=== PATIENT | female | born 1955 | race Caucasian/White ===

== ENCOUNTER 2019-06-12 08:54 | Day surgery (SDC) | payer BC ==
[~2019-06-12 08:54] MED LIST: Lactated Ringers 1,000 ML IV SCH; Sodium Chloride 0.9% 10 ML SDV IV PRN; Sodium Chloride 0.9% 10 ML Syringe FLUSH PRN; Sodium Chloride 0.9% 2.5 ML Syringe FLUSH PRN
--- NOTE | 2019-06-12 09:47 | PCM.PREANE ---
Preanesthetic Assessment - Anesthesia/Transfusion/Family Hx Anesthesia History: Prior Anesthesia Without Reaction Family History of Anesthesia Reaction: No Transfusion History: No Prior Transfusion(s) Intubation History: Unknown - Review of Systems General: No Symptoms Pulmonary: No Symptoms Cardiovascular: No Symptoms Gastrointestinal: No Symptoms Neurological: Headache Other: Reports: None - Physical Assessment NPO Status Date: 06/11/19 O2 Sat by Pulse Oximetry: 98 Respiratory Rate: 15 Vital Signs: Last Vital Signs Temp 97.5 F 06/12/19 09:23 Pulse 89 06/12/19 09:23 Resp 15 06/12/19 09:23 BP 110/70 06/12/19 09:23 Pulse Ox 98 06/12/19 09:23 Height: 5 ft 9 in Weight: 78.925 kg ASA Class: 2 Mental Status: Alert & Oriented x3 Airway Class: Mallampati = 2 Dentition: Reports: Normal Dentition ROM/Head Extension: Full Lungs: Clear to Auscultation, Normal Respiratory Effort Cardiovascular: Regular Rate, Regular Rhythm - Allergies Allergies/Adverse Reactions: Allergies Allergy/AdvReac Type Severity Reaction Status Date / Time No Known Allergies Allergy Verified 06/06/19 13:48 - Blood Blood Available: No - Anesthesia Plan Pre-Op Medication Ordered: None - Acknowledgements Anesthesia Type Planned: General Anesthesia Pt an Appropriate Candidate for the Planned Anesthesia: Yes Alternatives and Risks of Anesthesia Discussed w Pt/Guardian: Yes Pt/Guardian Understands and Agrees with Anesthesia Plan: Yes Additional Comments: anes prob list: smoker PLAN: tiva PreAnesthesia Questionnaire HEENT History: Reports: Other (See Below) Other HEENT History: uses reading glasses Gastrointestinal History: Reports: Colon Polyp Musculoskeletal History: Reports: Fracture Other Musculoskeletal History: hx of fx clavicle as a child Endocrine/Metabolic History: Reports: Hypothyroidism - Past Surgical History Head Surgeries/Procedures: Reports: None HEENT Surgical History: Reports: Tonsillectomy GI Surgical History: Reports: Colonoscopy Musculoskeletal Surgical History: Reports: Knee Replacement Other Musculoskeletal Surgeries/Procedures:: left TKA - SUBSTANCE USE Smoking Status *Q: Current Every Day Smoker Tobacco Use Within Last Twelve Months: Cigarettes Recreational Drug Use History: No - HOME MEDS Home Medications: Home Meds Calcium Phosphate Trib/Vit D3 [Citracal + D3 Gummies] 1 tab PO DAILY 06/06/19 [ History] Levothyroxine [Synthroid] 100 mcg PO DAILY 06/06/19 [History] Multivits-Min/Iron/FA/Lutein [Centrum Silver Women Tablet] 1 tab PO DAILY [History] - CURRENT (IN HOUSE) MEDS Current Meds: Current Medications Lactated Ringer's (Ringers, Lactated) 1,000 mls @ 125 mls/hr IV ASDIRECTED JEANINE Last Admin: 06/12/19 09:31 Dose: 125 mls/hr Sodium Chloride (Saline Flush) 10 ml FLUSH ASDIRECTED PRN PRN Reason: Keep Vein Open Sodium Chloride (Saline Flush) 2.5 ml FLUSH ASDIRECTED PRN PRN Reason: Keep Vein Open Sodium Chloride (Saline Flush) 10 ml FLUSH ASDIRECTED PRN PRN Reason: Keep Vein Open Sodium Chloride (Saline Flush) 2.5 ml FLUSH ASDIRECTED PRN PRN Reason: Keep Vein Open Sodium Chloride (Normal Saline) 10 ml IV ASDIRECTED PRN PRN Reason: IV Use
[2019-06-12] MEDS ORDERED: Lidocaine 2% 5 ML SDV ONE (11:04)
[2019-06-12] MEDS ORDERED: Propofol 200 MG/20 ML SDV ONE (11:05)
[2019-06-12] MEDS ORDERED: fentaNYL 100 MCG/2 ML SDV ONE (11:05)
--- NOTE | 2019-06-12 12:26 | PCM.OPNOTE ---
- General Post-Op/Procedure Note Date of Surgery/Procedure: 06/12/19 Operative Procedure(s): Colonoscopy Findings: Hyperplastic sigmoid colon polyps Pre Op Diagnosis: History of colon polyps Post-Op Diagnosis: Hyperplastic sigmoid colon polyps Anesthesia Technique: ERNIE Primary Surgeon: Tamra Sawyer Condition: Good
--- NOTE | 2019-06-12 12:38 | PCM48HPAN ---
Post Anesthesia Note - EVALUATION WITHIN 48HRS OF ANESTHETIC Vital Signs in Normal Range: Yes Patient Participated in Evaluation: Yes Respiratory Function Stable: Yes Airway Patent: Yes Cardiovascular Function Stable: Yes Hydration Status Stable: Yes Pain Control Satisfactory: Yes Nausea and Vomiting Control Satisfactory: Yes Mental Status Recovered: Yes Resp Rate: 18
--- NOTE | 2019-06-13 16:11 | OR ---
SURGEON: MATTHEW AVILES MD DATE OF PROCEDURE: 06/12/2019 PREOPERATIVE DIAGNOSIS: History of colon polyps. POSTOPERATIVE DIAGNOSIS: Multiple hyperplastic polyps of the sigmoid colon. PROCEDURE PERFORMED: Diagnostic colonoscopy. ANESTHESIA: MAC. INSTRUMENT USED: Olympus colonoscope. EXTENT OF EXAM: To the cecum. PREPARATION: Good. LIMITATIONS: None. INDICATION FOR EXAMINATION: The patient is a 64-year-old female with a strong family history of colon cancer. I performed a screening colonoscopy six months ago and saw multiple polyps. The polyps that I removed for more proximal colon were tubular adenomas, but the multiple polyps I removed from her sigmoid colon were hyperplastic. Given that I did not remove all of these, the decision was made to proceed with a 6 month followup to ensure that none of the polyps appeared to be older adenomas. The patient and I discussed the procedure, expected perioperative course, and risks including bleeding, infection, damage to surrounding structures including perforation. The patient verbalized understanding and wished to proceed. PROCEDURE IN DETAIL: The patient was brought to into the endoscopy suite and placed in the left lateral decubitus position. A time-out was completed verifying the patient's name, age, date of , allergies, and procedure to be performed. Monitored anesthesia care was induced and continuous oxygen was provided via nasal cannula throughout the procedure. After adequate sedation was achieved, a digital rectal exam was performed. This exam was within normal limits. A well lubricated colonoscope was inserted in the rectum and advanced under direct visualization to the level of the cecum. This was somewhat difficult, given the tortuosity of her sigmoid colon. The scope was then a photograph taken of the cecal cap; however, I was unable to retroflex the scope within the cecum due to looping of the scope more proximally. The scope was fully withdrawn while examining the color, texture, anatomy, and integrity of the mucosa from the cecum to the anal canal. The patient was again found to have multiple hyperplastic polyps in the mid sigmoid colon all the way to the rectum. A biopsy of one of these was taken and sent to Pathology, labeled as sigmoid colon polyp. Using infrared imaging with my scope, I was able to closely inspected all these polyps. All appeared to have features of hyperplastic polyps. No further biopsies were taken. The scope was brought into the rectum and retroflexed to allow visualization of the anal canal opening. This appeared normal and a photograph was taken. Scope was straightened out and fully withdrawn. The cecum to anus time was 9 minutes. The patient tolerated the procedure well and taken to PACU in stable condition. ENDOSCOPIC DIAGNOSIS: Multiple hyperplastic polyps of the sigmoid colon. RECOMMENDATIONS: I visited with the patient regarding these findings. If the biopsy of the polyp in her sigmoid colon comes back as hyperplastic, I will have her follow up in 3 years for repeat colonoscopy. LAURENCE ARNOLD /[id number]
== END 2019-06-12 12:59 | disposition home or self-care (01) ==
LOC: MW.SDS 08:54
PROVIDERS: ATTEND Surgery
DX: K63.5 Polyp of colon (principal); E03.9 Hypothyroidism, unspecified; F17.210 Nicotine dependence, cigarettes, uncomplicated; Z86.010 Personal history of colon polyps; Z79.899 Other long term (current) drug therapy
CPT/HCPCS: 45380; J2001; J2704; J3010; J7120; 00811; 88305

== ENCOUNTER 2022-10-26 06:35 | Day surgery (SDC) | payer MEDICARE ==
[~2022-10-26 06:35] MED LIST changes: -Sodium Chloride 0.9% 10 ML SDV IV PRN; +Sodium Chloride 0.9% 20 ML SDV IV PRN
[2022-10-26] MEDS ORDERED: Propofol 200 MG/20 ML SDV ONE (07:44)
[2022-10-26] MEDS ORDERED: Lidocaine 2% 5 ML SDV ONE (07:44)
[2022-10-26] MEDS ORDERED: fentaNYL 100 MCG/2 ML SDV ONE (07:45)
[2022-10-26] MEDS ORDERED: ePHEDrine 50 MG/ML SDV ONE (08:18)
== END 2022-10-26 09:05 | disposition home or self-care (01) ==
LOC: MW.SDS 06:35
PROVIDERS: ATTEND Surgery
DX: Z12.11 Encounter for screening for malignant neoplasm of colon (principal); D12.3 Benign neoplasm of transverse colon; D12.5 Benign neoplasm of sigmoid colon; E03.9 Hypothyroidism, unspecified; F17.210 Nicotine dependence, cigarettes, uncomplicated; Z79.899 Other long term (current) drug therapy; Z86.010 Personal history of colon polyps; Z98.890 Other specified postprocedural states; Z96.652 Presence of left artificial knee joint; Z79.890 Hormone replacement therapy
CPT/HCPCS: 45380; J2704; J3010; J7120